=== PATIENT | female | born 1990 | race African-American/Black ===

== ENCOUNTER 2017-08-01 04:37 | Emergency (ER) | payer OTHER ==
[~2017-08-01] VITALS: Ht 154.9 cm; Wt 69.0 kg
[~2017-08-01 04:37] MED LIST: ALEVE220 MG PO; KEFLEX500 MG PO; NAPROSYN500 MG PO; NOHOMEMEDICATIONS; NORCO 5-325 TA1 EACH PO; ONDANSETRON HCL4 M2 PO; PRILOSEC 20 MG20 MG PO; ZOFRAN ODT4 MG PO
[2017-08-01 04:49] VITALS: BP 142/93
[2017-08-01] MEDS ORDERED: NORCO 5-325 TA1 EACH PO (05:20)
[2017-08-01] MEDS ORDERED: IBUPROFEN 600600 M1 PO (05:20)
== END 2017-08-01 05:34 | disposition home or self-care (01) ==
LOC: ER 04:37
DX: S83.91XA Sprain of unspecified site of right knee, initial encounter (principal); F41.9 Anxiety disorder, unspecified; I10 Essential (primary) hypertension; F17.210 Nicotine dependence, cigarettes, uncomplicated; W22.03XA Walked into furniture, initial encounter; Y93.89 Activity, other specified; Y92.89 Other specified places as the place of occurrence of the external cause; Y99.8 Other external cause status

== ENCOUNTER 2021-06-26 21:01 | Emergency (ER) | payer OTHER ==
[~2021-06-26] VITALS: Ht 154.9 cm; Wt 68.0 kg
[~2021-06-26 21:01] MED LIST changes: +IBUPROFEN 600600 M1 PO
[2021-06-26] MEDS ORDERED: NORVASC10 MG PO (21:12)
[2021-06-26 22:43] LABS: URINE BILIRUBIN NEGATIVE (Negative); URINE BLOOD 3+ (Negative); URINE CLARITY CLEAR; URINE COLOR YELLOW; URINE GLUCOSE-RANDOM* NEGATIVE (Negative); URINE KETONES NEGATIVE (Negative); URINE NITRITE-REFLEX NEGATIVE (Negative); URINE PROTEIN (DIPSTICK) NEGATIVE (Negative); URINE SPECIFIC GRAVITY <= 1.005 (1.005-1.035); URINE UROBILINOGEN 0.2 E.U./dl (0.2-1.0)
[2021-06-26 22:50] LABS: URINE LEUKOCYTES-REFLEX 3+ (Negative)
[2021-06-26 23:01] LABS: CASTS None Seen /LPF (None Seen); CRYSTALS None Seen /LPF (None Seen); MUCUS 0-3 Light strn/LPF (None Seen); SQUAMOUS 4-10 Moderate /LPF (0-3)
[2021-06-26 23:44] VITALS: BP 150/107
[2021-06-27 00:18] LABS: HEMATOCRIT 36.6 % (37.0-47.0); HEMOGLOBIN 12.5 gm/dL (12.0-15.0); MCH 32.1 pg (26.0-34.0); MCHC 34.1 g/dL (28.0-37.0); MCV 94.2 fL (80.0-100.0); RBC 3.89 mil/uL (4.20-5.00); RDW 13.5 % (10.5-14.5); WBC 9.8 thou/uL (4.0-11.0)
[2021-06-27 00:25] LABS: ANION GAP 12 mmol/L (7-16); BUN 7 mg/dL (7-18); CALCIUM 8.4 mg/dL (8.5-10.1); CHLORIDE 106 mmol/L (98-107); CO2 26 mmol/L (21-32); CREATININE 0.7 mg/dL (0.6-1.0); GLUCOSE 86 mg/dL (74-106); POTASSIUM 3.4 mmol/L (3.5-5.1); SODIUM 144 mmol/L (136-145)
[2021-06-27 00:36] LABS: ALBUMIN 3.7 g/dL (3.4-5.0); SGOT 17 U/L (15-37); SGPT 18 U/L (30-65); TOTAL BILIRUBIN 0.1 mg/dL (0.2-1.0); TOTAL PROTEIN 7.7 g/dL (6.4-8.2)
--- NOTE | 2021-06-27 07:36 | EKG ---
[place] [address] [place] [address] ELECTROCARDIOGRAM REPORT Name: GUILLAUME SIMMS Room #: [facility]P [facility]ENTERMaur[facility] [id number] Admission: 06/26/21 Attend Phys: Discharge: 06/27/21 Date of : 88 Report #: [id number] [facility] ED Test Date: 2021-06-26 Test Time: 23:30:51 Pat Name: GUILLAUME SIMMS Department: Room: Gender: F Application Support Intern: jody : 1990 Requested By: Krystal Alanis Order Number: [id number] MD: Marcio Miller Measurements Intervals Dillon Rate: 95 P: 45 HI: 179 QRS: -38 QRSD: 93 T: 29 QT: 350 QTc: 440 Interpretive Statements Sinus rhythm Left axis deviation RSR' in V1 or V2, probably normal variant Baseline wander in lead(s) V1 No previous ECG available for comparison Electronically Signed On 06-27-2021 7:36:39 CDT by Marcio Miller [email or web address] <ELECTRONICALLY SIGNED> By: Marcio Miller MD, [facility] 06/27/21 0736 2330 2330 Marcio Miller MD, FACC /EPI
== END 2021-06-27 00:35 | disposition left against medical advice (07) ==
LOC: ER 21:01
PROVIDERS: Nurse Practitioner Family
DX: N39.0 Urinary tract infection, site not specified (principal); I10 Essential (primary) hypertension; F41.9 Anxiety disorder, unspecified; F17.210 Nicotine dependence, cigarettes, uncomplicated; Z79.899 Other long term (current) drug therapy; Z79.891 Long term (current) use of opiate analgesic; Z79.1 Long term (current) use of non-steroidal anti-inflammatories (NSAID)